=== PATIENT | male | born 1950 | race Caucasian/White ===

== ENCOUNTER 2016-11-17 10:18 | Emergency (ER) | payer OTHER, MEDICARE ==
[2016-11-17 10:49] LABS: BASO % 0.1 % (0.2-1.2); EOS % 0.1 % (0.8-7.0); GRAN % 51.9 % (34.0-67.9); HEMATOCRIT 39.8 % (40-51); HEMOGLOBIN 13.8 g/dL (13.7-17.5); LYMPH # 13.3 10_X3_uL (1.3-3.6); LYMPH % 43.2 % (21.8-53.1); MEAN CORPUSCULAR HEMOGLOBIN 29.4 pg (27.0-33.0); MEAN CORPUSCULAR HGB CONC 34.7 g/dL (32.0-36.0); MEAN CORPUSCULAR VOLUME 84.9 fL (79-92); MEAN PLATELET VOLUME 10.4 fl (7.5-11.5); MONO # 1.4 10_X3_uL (0.3-0.8); MONO % 4.7 % (5.3-12.2); PLATELET COUNT 165 x10_3/uL (163-337); RED BLOOD COUNT 4.69 x10_6/uL (4.6-6.1); RED CELL DISTRIBUTION WIDTH 14.2 % (11.6-14.4)
[2016-11-17 10:52] LABS: WHITE BLOOD COUNT 30.9 x10_3/uL (4.2-9.1)
[2016-11-17 11:02] LABS: ALBUMIN 3.3 gm/dL (3.4-5.0); ALKALINE PHOSPHATASE 84 U/L (50-136); ALT/SGPT 42 U/L (7.53-40.17); AMYLASE 36 U/L (15.62-74.58); AST/SGOT 47 U/L (6.66-35.34); BILIRUBIN,TOTAL 0.86 mg/dL (0.0-1.0); BLOOD UREA NITROGEN 19 mg/dL (7-18); CALCIUM 8.3 mg/dL (8.7-10.7); CARBON DIOXIDE 20 mmol/L (21-32); GLUCOSE,RANDOM 247 mg/dL (70-99); LIPASE 48 U/L (6.75-60.75); SODIUM 128 mmol/L (136-145); TOTAL PROTEIN 6.5 gm/dL (6.4-8.2)
== END 2016-11-17 13:44 | disposition home or self-care (01) ==
LOC: ER 10:18
PROVIDERS: General Practice
DX: K59.00 Constipation, unspecified (principal); R10.12 Left upper quadrant pain; E11.65 Type 2 diabetes mellitus with hyperglycemia; R74.8 Abnormal levels of other serum enzymes; D72.829 Elevated white blood cell count, unspecified; E87.1 Hypo-osmolality and hyponatremia; J18.9 Pneumonia, unspecified organism; Z88.8 Allergy status to other drugs, medicaments and biological substances; Z79.899 Other long term (current) drug therapy; Z79.4 Long term (current) use of insulin; Z79.82 Long term (current) use of aspirin; Z79.1 Long term (current) use of non-steroidal anti-inflammatories (NSAID)
CPT/HCPCS: 36415; 74000; 80053; 82150; 83690; 85025; 99284; 99284-25